=== PATIENT | female | born 1975 | race Caucasian/White ===

== ENCOUNTER 2022-01-15 09:10 | Outpatient (CLI) | payer OTHER, SELFPAY | END 2022-01-15 09:11 | disposition home or self-care (01) | LOC: OP CLINIC 09:10 | PROVIDERS: PCP Family Medicine; Visit Provider Internal Medicine Gastroenterology | DX: K92.1 Melena (principal); K63.5 Polyp of colon | CPT/HCPCS: 45380; 45385; 88305; 99153; J2250; J3010 ==

== ENCOUNTER 2022-04-11 07:44 | Outpatient (CLI) | payer OTHER, SELFPAY ==
--- NOTE | 2022-04-11 08:15 | MR_ITS ---
[address] [address] Phone:?[phone] Fax:?[phone] Referring Physician Information: Kb Sánchez M.D. [id number] [facility] [address] Phone:?[phone] Fax:?[phone] Patient:Peter Kruse D.O.B:?1975 Sex:?Female Phone:?[phone] [facility] MRN:?[id number] Exam Date:?04/11/2022 ? EXAM: MRI of the RIGHT SHOULDER, without contrast CLINICAL INFORMATION: Female, 46 years old, with right shoulder pain. INDICATION: Evaluate for rotator cuff tear. PRIOR SURGERY: None reported. PLAIN FILMS: None available. COMPARISONS: No prior MRIs available. TECHNICAL INFORMATION: Using a 1.5T MR scanner and a localizing surface coil: coronal obliques: PD, T2, STIR sagittal obliques: PD, T2 axials: PD, T2 SEDATION: None CONTRAST: None FINDINGS: Bones: Proximal humerus: No fracture or marrow edema/pathology. No humeral Hill-Sachs or reverse Hill-Sachs lesion/impaction or contusion. Glenoid: No fracture or marrow edema/pathology. No osseous Bankart lesion. Rotator cuff and muscles/tendons: Supraspinatus: Mild-moderate supraspinatus tendinopathy, with bursal surface fraying, but without discrete tendon tear. Infraspinatus: No tendinopathy, tear or atrophy. Teres minor: No tendinopathy, tear or atrophy. Subscapularis: Mild tendinopathy of the superior distal subscapularis, without tendon tear or muscle atrophy. Deltoid: No strain or atrophy. Coracoacromial arch: Acromion morphology: The acromion has type II morphology. No discrete subacromial osseous spur or os acromiale. Acromiohumeral space: The acromiohumeral space measures 5.5 mm at its narrowest point (osseous distance). Coracohumeral space: The coracohumeral space is within normal limits. Acromioclavicular joint: Joint: Mild AC joint arthropathy, with 3 mm of inferior osteophytosis, which results in a supraspinatus contour abnormality. Ligaments: Coracoclavicular ligaments are intact. Bursae: Subacromial-subdeltoid: Mild subacromial-subdeltoid bursitis. Subcoracoid: No convincing subcoracoid bursal thickening/bursitis. Biceps tendon: The long head of the biceps tendon is present within the bicipital groove. The intra-articular and extra-articular segments are intact without tendinosis, tenosynovitis, or displacement. Glenohumeral joint: Effusion/cyst: No significant glenohumeral joint effusion. Articular cartilage: Humeral head: No osteochondral abnormalities. Glenoid: No osteochondral abnormalities. Loose bodies: No discrete intra-articular body within the joint. Labrum:?No discrete labral tear or paralabral cyst identified on this non- arthrographic study. Inferior glenohumeral ligament/axillary pouch:?Mild-moderate thickening of inferior capsuloligamentous structures (coronal PD series 6 images 14-19). Additionally, there is soft tissue thickening throughout the rotator interval (sagittal PD series 8 images 11-15). IMPRESSION: 1. Mild-moderate supraspinatus and mild subscapularis tendinopathy. No rotator cuff tendon tear. 2. Mild narrowing of the glenohumeral space with mild subacromial-subdeltoid bursitis. Additionally, inferior osteophytosis from mild AC joint arthropathy results in a supraspinatus contour abnormality. 3. Findings in keeping with any clinical symptoms of adhesive capsulitis. 4. No tendinopathy, displacement, or tear of the biceps long head tendon. 5. No full-thickness chondral defect or evidence of glenohumeral joint osteoarthritis. 6. No labral tear or paralabral cyst. BC Electronically signed on 04/11/2022 1:18:00 PM by Joon Paulson M.D.
== END 2022-04-11 07:45 | disposition home or self-care (01) ==
LOC: MRI 07:45
PROVIDERS: PCP Family Medicine; Visit Provider Orthopaedic Surgery Sports Medicine
DX: M25.511 Pain in right shoulder (principal); M75.101 Unspecified rotator cuff tear or rupture of right shoulder, not specified as traumatic; M75.51 Bursitis of right shoulder; M75.01 Adhesive capsulitis of right shoulder
CPT/HCPCS: 73221

== ENCOUNTER 2023-01-03 13:25 | Emergency (ER) | payer OTHER, SELFPAY ==
[2023-01-03 13:38] VITALS: BP 144/84; PULSE 95; RESP 16; TEMP 36.8; O2SAT 97; BMI 39.9
== END 2023-01-03 16:19 | disposition left against medical advice (07) ==
PROVIDERS: Emergency Provider Student in an Organized Health Care Education/Training Program; PCP Family Medicine
DX: Z53.21 Procedure and treatment not carried out due to patient leaving prior to being seen by health care provider (principal)

== ENCOUNTER 2024-02-17 09:38 | Outpatient (CLI) | payer OTHER, SELFPAY ==
--- NOTE | 2024-02-17 09:45 | CRLHL7_ITS ---
For Patients: As a result of the Cures Act, medical imaging exams and procedure reports are released immediately into your electronic medical record. You may view this report before your referring provider. If you have questions, please contact your health care provider. DIAGNOSTIC LEFT BREAST MAMMOGRAM WITH COMPUTER-AIDED DETECTION AND TOMOSYNTHESIS AND IMPLANT DISPLACEMENT, 02/17/2024 CLINICAL HISTORY: LEFT breast pain. COMPARISON: 08/02/23, 03/01/22, 11/25/20. TECHNIQUE: Digital LEFT mammogram in 2 projections with computer-aided detection. Tomosynthesis was used in this interpretation. Implant displacement. BREAST COMPOSITION: There are scattered areas of fibroglandular density. FINDINGS: 3D CC/MLO and implant displaced images of the LEFT breast submitted. Intact implant. No suspicious mass or architectural distortion. No suspicious calcifications or adenopathy. IMPRESSION: Normal left breast mammograms. No suspicious findings. RECOMMENDATIONS: Routine screening mammography. BI-RADS Category 2. Benign Results and recommendations discussed with the patient. Dictated by Enrique Cadet MD @ 02/17/2024 10:56:13 AM DENITA/edward DW/Dictated by: Enrique Cadet MD @ 02/17/2024 10:56:00 AM (Electronically Signed)
== END 2024-02-17 09:39 | disposition home or self-care (01) ==
LOC: MAMMO 09:39
PROVIDERS: PCP Nurse Practitioner Family; Visit Provider Nurse Practitioner Family
DX: N64.4 Mastodynia (principal); L98.8 Other specified disorders of the skin and subcutaneous tissue
CPT/HCPCS: 77065; G0279